=== PATIENT | male | born 1975 | race Caucasian/White ===

== ENCOUNTER → 2024-07-20 | Outpatient (CLI) | payer MEDICAID, SELFPAY | END | disposition home or self-care (01) | PROVIDERS: Referring Provider Podiatrist; Visit Provider Podiatrist | DX: Z53.8 Procedure and treatment not carried out for other reasons (principal) ==

== ENCOUNTER → 2024-07-28 | Outpatient (CLI) | payer MEDICAID, SELFPAY ==
--- NOTE | 2024-07-28 10:45 | XR_ITS ---
Examination: Foot, right, 3 views Technique: AP, oblique, lateral views foot, 3 views Date and time of exam: July 28, 2024 1049 hrs. Indications: Right foot pain beginning 2 months ago. Findings: Adequate bone density. Mild narrowing first metatarsophalangeal joint. No fracture No plantar posterior bony calcaneal spurs No cortical bone destruction Impression: No fracture or significant arthritic change
== END | disposition home or self-care (01) ==
PROVIDERS: Referring Provider Podiatrist; Visit Provider Podiatrist
DX: M79.671 Pain in right foot (principal)
CPT/HCPCS: 73630

== ENCOUNTER 2024-12-05 11:24 | Emergency (ER) | payer MEDICAID, SELFPAY ==
[2024-12-05 11:42] VITALS: BP 113/73; PULSE 66; RESP 16; TEMP 36.9; O2SAT 96; BMI 29.5
--- NOTE | 2024-12-05 12:07 | EDNOTE_ITS ---
<Statement entered by Dalila Horn MD - 12/19/24 06:28> I, Dalila Horn MD, have reviewed the history, exam, and assessment of the patient. I have evaluated the patient independently and agree with the plan of care documented by [ ]. All diagnostic studies were reviewed and discussed. I confirm the diagnosis as documented by the Resident. I was present during the Medical Decision Making for this patient. The patient's plan of care was created between myself and the Resident and consistent with our discussion of the patient's case. ED General RME/HPI General Chief complaint: Wound/Laceration Stated complaint: THUMB LAC, NEAR SYNCOPE Time Seen by Provider: 12/05/24 12:06 Arrival date/time: 12/05/24 11:24 RME / HPI RME / HPI narrative: 49-year-old male with past medical history of polysubstance use (currently 4 years sober) comes into the ED after he had a cut on his left thumb this morning while slicing vegetables in his kitchen. Patient states that he was cutting vegetables when all of a sudden he unintentionally cut the tip of his left thumb and started bleeding. Patient stated that he was kind the dizzy and almost feeling like he was going to pass out. Otherwise patient has no other complaints at this time. Denies any current smoking, drugs, alcohol Related Data Previous Rx's ?Medication ?Instructions ?Recorded chlordiazepoxide HCl 25 mg capsule 25 mg PO TID #30 ca ps 11/21/20 ibuprofen 400 mg tablet 400 mg PO Q8H PRN pain #10 tabs 12/05/24 Allergies Allergy/AdvReac Type Severity Reaction Status Date / Time No Known Allergies Allergy Verified 11/20/20 21:00 Review of Systems Review of Systems Systems Reviewed: All systems reviewed, normal except as documented Past Medical History Social History SMOKING STATUS: Never smoker Travel History EBOLA RISK: No ED Exam Narrative Physical exam: Gen: A&O X 3, NAD HEENT: NCAT, EOMI, Pupils reactive GREGORY, not icteric. External ears normal. No rhinorrhea. Moist mucous membranes. Neck: Supple, full range of motion, no observable masses, No meningeal sign. Lungs: No Respiratory distress, clear bilateral. CV: RRR, no murmurs. Abdomen: Soft, nondistended, No rebound tenderness. MSK: No joint swelling, no redness, peripheral pulses presents, lumbar with no edema. Skin: No rashes, petechiae, lesions. L thumb with wound on the tip with no active bleeding and no exposed bone. Neuro: No focal neurological deficits appreciated, sensory and motor intact. Psych: Cooperative, appropriate mood and effect. Course Quality Measures none Orders Category Date Time Status Set Up Suture Tray STAT Care 12/05/24 11:50 Active Wound Care NOW Care 12/05/24 11:50 Active HYDROcodone*/APAP 5/325 [Alsen 5/325] Med 12/05/24 11:51 Discontinued 1 tab PO X1 ONE Lidocaine 1% 20 ml [Xylocaine 1% 20 ML] Med 12/05/24 11:50 Discontinued 20 ml INFL X1 ONE TET,DIP/PERT AC (Adult)-Tdap [Boostrix Adult (Tdap) Med 12/05/24 11:50 Discontinued Vacc] 0.5 ml IMI .ONCE ONE Vital Signs Vital signs: Vital Signs Temperature 98.4 F 12/05/24 11:42 Pulse Rate 66 12/05/24 11:42 Respiratory Rate 16 12/05/24 11:42 Blood Pressure 113/73 12/05/24 11:42 Pulse Oximetry (%) 96 12/05/24 11:42 Oxygen Delivery Method Room Air 12/05/24 11:42 Discharge Plan Plan Patient Disposition: HOME (Self Care) Prescriptions/Referrals Prescriptions/Med Rec: New ibuprofen 400 mg tablet 400 mg PO Q8H PRN (Reason: pain ) Qty: 10 0RF No Action chlordiazepoxide HCl 25 mg capsule 25 mg PO TID Qty: 30 0RF Problem List Clinical Impression: Avulsion of skin Patient/Caregiver Discharge Instructions Other Activity Instructions:: Follow-up primary care physician within 1 to 2 days. Can take Tylenol every 6 hours for pain as needed for the next 2 or 3 days Can take ibuprofen 400 mg every 8 hours for pain as needed for the next 2-3 days Keep wound clean and dry at all times. Keep current dressing on until tonight, you may clean it with wound tower cleaner and again apply dressing as instructed. Come back to the ER if you develop fevers, chills, increasing pain, or worsening bleeding. Education Materials: ED Skin Avulsion Print Language: Ken[place] Stand Alone Forms: Milka Award Info., Patient Portal Info Letter MDM Narrative MDM hospital course: Patient was seen and evaluated upon arrival by myself. Patient was complaining of 10 out of 10 pain at the thumb location and discussed with the patient that use of any narcotic at this time could influence a relapse as these are addictive medications and patient stated that he understood, but that his pain was too unbearable at this time and that ibuprofen had not worked. Tetanus shot and Alsen were given x 1. Patient's wound was cleaned and dried. Apply triple antibiotic and was wrapped with clean gauze. No bleeding was present. At this time patient can be stable enough to be discharged home. Will need to follow-up primary care physician. Case disclosed with Attending Dr. Justina Draper PGY2 Disclaimer: Even though this this note was dictated by speech recognition and even though it was carefully revised there may still be minor errors in boilermaker industrial boilers due to voice recognition software. Medication Administration(s) Medication Administration History Discontinued Medications Hydrocodone Bitart/Acetaminophen (Hydrocodone/Apap 5/325 Tablet) 1 tab PO X1 ONE Stop: 12/05/24 11:52 Last Admin: 12/05/24 12:22 Dose: 1 tab Documented By: Diphtheria/Tetanus/Acell Pertussis (Diphth,Pertuss(Acell),Tet Vac 0.5 Ml Syr- Adult) 0.5 ml IMi .ONCE ONE Stop: 12/05/24 11:51 Last Admin: 12/05/24 12:23 Dose: 0.5 ml Documented By: Lidocaine HCl (Lidocaine Hcl 1% 20 Ml Vial) 20 ml INFL X1 ONE Stop: 12/05/24 11:51 Last Admin: 12/05/24 12:22 Dose: 20 ml Documented By:
[2024-12-05] MEDS: LIDOCAINE HCL 1% 20 ML VIAL INFL (12:22)
[2024-12-05] MEDS: HYDROcodone/APAP 5/325 TABLET 1 TAB PO (12:22)
[2024-12-05] MEDS: DIPHTH,PERTUSS(ACELL),TET VAC 0.5 ML SYR- ADULT IMi (12:23)
== END 2024-12-05 15:14 | disposition home or self-care (01) ==
LOC: SERX 13:03
DX: S61.012A Laceration without foreign body of left thumb without damage to nail, initial encounter (principal); W26.0XXA Contact with knife, initial encounter; Y93.G1 Activity, food preparation and clean up; Y92.000 Kitchen of unspecified non-institutional (private) residence as the place of occurrence of the external cause; Z23 Encounter for immunization
CPT/HCPCS: 90471; 90715; 99283; J3490; A9270